=== PATIENT | female | born 1960 | race Caucasian/White ===

== ENCOUNTER 2019-08-21 14:54 | Emergency (ER) | payer MEDICARE, MEDICAID ==
[~2019-08-21] VITALS: Ht 162.6 cm; Wt 69.5 kg
[2019-08-21] MEDS ORDERED: ondansetron 4mg rapidly disintigrating tab PO ONE (15:15)
[2019-08-21] MEDS ORDERED: HYDROcodone/acetaminophen 10/325mg tab PO ONE ×2 (15:15→18:00)
[2019-08-21] MEDS ORDERED: ondansetron/PF 4mg/2ml inj IV ONE (15:55)
[2019-08-21] MEDS ORDERED: MIDAZolam 5mg/ml 2ml vial IV ONE (15:55)
[2019-08-21] MEDS ORDERED: etomidate 2mg/ml inj. IV ONE (15:55)
[2019-08-21] MEDS ORDERED: fentaNYL/PF 50MCG/1 ML 2ML syringe IV ONE (15:55)
[2019-08-21] MEDS ORDERED: fentaNYL/PF 50MCG/1 ML 2ML syringe IV PRN (16:50)
[2019-08-21] MEDS ORDERED: ondansetron/PF 4mg/2ml inj IV PRN (16:50)
[2019-08-21] MEDS ORDERED: ONDA4TAB6 PO (17:47)
[2019-08-21] MEDS ORDERED: HYDR-3965 PO (17:47)
[2019-08-21 18:51] VITALS: BP 144/74
== END 2019-08-21 18:45 | disposition home or self-care (01) ==
LOC: ER 14:55
DX: S43.315A Dislocation of left scapula, initial encounter (principal); R07.89 Other chest pain; R06.02 Shortness of breath; M25.512 Pain in left shoulder; R20.0 Anesthesia of skin; Z79.899 Other long term (current) drug therapy; W18.39XA Other fall on same level, initial encounter; Y93.89 Activity, other specified; Y92.89 Other specified places as the place of occurrence of the external cause; Y99.8 Other external cause status
CPT/HCPCS: 23650; 71101; 73020; 73030; 73080; 73110; 99285; J2250; J2405; J3010; 99152

== ENCOUNTER 2020-01-14 06:07 | Day surgery (SDC) | payer MEDICARE, OTHER ==
[2020-01-13 11:04] LABS: BASOPHILS % (AUTO) 0.7 % (0-1); EOSINOPHILS # (AUTO) 0.1 X10'3 (0-0.9); EOSINOPHILS % (AUTO) 2.3 % (0-6); LYMPHOCYTES # (AUTO) 1.2 X10'3 (1.1-4.8); MEAN CORPUSCULAR HEMOGLOBIN 31.1 PG (27.0-31.0); MEAN CORPUSCULAR HGB CONC 33.1 g/dL (33.0-36.5); MEAN PLATELET VOLUME 8.1 FL (7.4-10.4); MONOCYTES # (AUTO) 0.3 X10'3 (0-0.9); MONOCYTES % (AUTO) 8.3 % (2-12); NEUTROPHILS # (AUTO) 1.9 X10'3 (1.8-7.7); NEUTROPHILS % (AUTO) 53.7 % (42-75); PRE OP HEMATOCRIT 34.5 % (35.0-45.0); PRE OP HEMOGLOBIN 11.4 g/dL (12.0-16.0); PRE OP PLATELET COUNT 161 X10'3 (140-440); RED BLOOD COUNT 3.67 X10'6 (4.20-5.60); RED CELL DISTRIBUTION WIDTH 12.5 % (11.5-14.5)
[2020-01-13 11:19] LABS: ALBUMIN 3.8 G/DL (3.4-5.0); ALBUMIN/GLOBULIN RATIO 1.3 (1.1-1.5); ALKALINE PHOSPHATASE 71 IU/L (46-116); BLOOD UREA NITROGEN 20 MG/DL (7-18); CALCIUM 8.4 MG/DL (8.5-10.1); CHLORIDE 105 MMOL/L (99-107); CREATININE 0.77 MG/DL (0.40-0.90); PRE OP ALT 22 U/L (30-65); PRE OP ANION GAP 7 (8-16); PRE OP AST 17 U/L (10-37); PRE OP BILIRUB, TOTAL 0.5 MG/DL (0.0-1.0); PRE OP GLUCOSE 91 MG/DL (70-104); PRE OP POTASSIUM 3.9 MMOL/L (3.4-5.1); PRE OP SODIUM 140 MMOL/L (135-145); TOTAL CARBON DIOXIDE 27.7 MMOL/L (24-32); TOTAL PROTEIN 6.8 G/DL (6.4-8.2); eGFR 77 ML/MIN
[~2020-01-14] VITALS: Ht 162.6 cm; Wt 67.1 kg
[2020-01-14] VITALS (12 sets, daily range): BP systolic 120–134; BP diastolic 56–100
[~2020-01-14 06:07] MED LIST: ALBU8HFA INH; AMLO-383 PO; CITA40TA17 PO; ESTR1TAB28 PO; HYDR-3972 PO; KEN0.1O TOP; LIDO700A47 TOP; OMEP20TA5 PO; PENT100C9 PO; PUMP300C PO; ZOLP10TA PO; albuterol 2.5 MG/3 ML nebule NEB ONE; famotidine 20mg tablet PO ONE; ringers solution, lacted 1,000 ML IV SCH; scopolamine 1.5mg patch.TD72 TD ONE
[2020-01-14] MEDS ORDERED: BUPIVAcaine/PF 2.5 mg/ml (0.25%) 30ml vial ONE (06:34)
[2020-01-14] MEDS ORDERED: ceFAZolin 2gm in dextrose, iso 50 ML IV ONE (07:40)
[2020-01-14] MEDS ORDERED: ondansetron/PF 4mg/2ml inj ONE (08:10)
[2020-01-14] MEDS ORDERED: sevoflurane 250ml liquid IH ONE (08:10)
[2020-01-14] MEDS ORDERED: fentaNYL/PF 50MCG/1 ML 2ML syringe ONE (08:14)
[2020-01-14] MEDS ORDERED: MIDAZolam 5mg/5ml vial ONE (08:15)
[2020-01-14] MEDS ORDERED: propofol inj 20 ML IV ONE (08:35)
[2020-01-14] MEDS ORDERED: LIDOcaine 1%/PF 5ML 10 MG/ML VIAL ONE (08:35)
[2020-01-14] MEDS ORDERED: dexamethasone sod phosphate 4mg/ml inj. ONE (08:35)
[2020-01-14] MEDS ORDERED: ROPIVAcaine 0.5% (5mg/ml) 30ml vial ONE (08:35)
[2020-01-14] MEDS ORDERED: meperidine/PF 25mg/ml syringe IV PRN ×3 (09:20)
[2020-01-14] MEDS ORDERED: ondansetron/PF 4mg/2ml inj IV PRN (09:20)
[2020-01-14] MEDS ORDERED: ringers solution, lacted 1,000 ML IV SCH (09:20)
[2020-01-14] MEDS ORDERED: morphine 4 MG/ML inj SYRINge IV PRN (09:20)
[2020-01-14] MEDS ORDERED: morphine 2 MG/ML inj. syringe IV PRN (09:20)
[2020-01-14] MEDS ORDERED: ROPIVAcaine 0.2%/PF PUMP/bolus 550 ML INTERSCALE SCH (09:20)
[2020-01-14] MEDS ORDERED: proCHLORperazine 10 MG/2 ml inj IV PRN (09:20)
[2020-01-14] MEDS ORDERED: ROPIVAcaine 0.2% (10 MG/5 ML) BOLUS INJECTION INTERSCALE PRN (09:20)
--- NOTE | 2020-01-14 10:43 | NUR ---
Received from OR via [facility], accompanied by Anesthesiologist ROLAND and report given by Anesthesiologist. PT DROWSY, DENIES PAIN, LEFT SHOULDER W/MEDI-PORE TAPE COVERING INCISION CDI, LEFT ARM IN IMMOBILIZER, FINGERS PWD, DOMESTIC FREIGHT FORWARDER 1-2 SECONDS. Addendum: 01/14/20 at 1118 by Monse Ro RN Amended: Links added.
[2020-01-14] MEDS ORDERED: HYDROcodone/acetaminophen 10/325mg tab PO PRN (10:55)
--- NOTE | 2020-01-14 13:43 | NUR ---
D/C INSTRUCTIONS GIVEN AND GONE OVER W/PT WHO VERBALIZED UNDERSTANDING, PT UP AND ABLE TO AMBULATE SAFELY, PT D/CD TO HOME VIA W/C TO PRIVATE VEHICLE W/O INCIDENT. Addendum: 01/14/20 at 1455 by Monse Ro RN Amended: Links added.
== END 2020-01-14 13:43 | disposition home or self-care (01) ==
LOC: PAS 06:07
PROVIDERS: ATTEND Orthopaedic Surgery
DX: M75.122 Complete rotator cuff tear or rupture of left shoulder, not specified as traumatic (principal); M75.42 Impingement syndrome of left shoulder; M75.22 Bicipital tendinitis, left shoulder; G89.18 Other acute postprocedural pain; F32.9 Major depressive disorder, single episode, unspecified; D64.9 Anemia, unspecified; I10 Essential (primary) hypertension; Z98.890 Other specified postprocedural states; Z79.899 Other long term (current) drug therapy; Z98.84 Bariatric surgery status; Z72.89 Other problems related to lifestyle; Z90.49 Acquired absence of other specified parts of digestive tract; Z87.442 Personal history of urinary calculi
CPT/HCPCS: 29826; 29827; 29828; 36415; 64416; 76942; 80053; 82948; 85025; 93005; C1713; J1100; J2250; J2405; J2704; J2795; J3010; J3490; J7120; A4565; A4618; A6449; A7000

== ENCOUNTER 2020-02-05 12:58 | Emergency (ER) | payer MEDICARE, OTHER ==
[~2020-02-05] VITALS: Ht 162.6 cm; Wt 70.0 kg
[~2020-02-05 12:58] MED LIST changes: -albuterol 2.5 MG/3 ML nebule NEB ONE; -famotidine 20mg tablet PO ONE; -ringers solution, lacted 1,000 ML IV SCH; -scopolamine 1.5mg patch.TD72 TD ONE
[2020-02-05] MEDS ORDERED: ampicillin/sulbac 3gm/NS 100ml 100 ML IV ONE (15:32)
[2020-02-05 17:03] VITALS: BP 120/60
== END 2020-02-05 17:05 | disposition home or self-care (01) ==
LOC: ER 12:59
DX: K04.7 Periapical abscess without sinus (principal); K02.9 Dental caries, unspecified; F32.9 Major depressive disorder, single episode, unspecified; Z79.899 Other long term (current) drug therapy
CPT/HCPCS: 96365; 99284; J0295

== ENCOUNTER 2021-10-18 10:58 | Emergency (ER) | payer MEDICARE, MEDICAID ==
[~2021-10-18] VITALS: Ht 162.6 cm; Wt 68.2 kg
[~2021-10-18 10:58] MED LIST changes: +OMEP20TA43 PO; -OMEP20TA5 PO
[2021-10-18 12:09] VITALS: BP 157/52
[2021-10-18 12:29] LABS: UA COLLECTION TYPE CLN CATCH MIDSTREAM
[2021-10-18 12:30] LABS: CLARITY,URINE CLEAR (Clear); COLOR,URINE YELLOW (Yellow); GLUCOSE, URINE NEGATIVE (Neg); KETONES,URINE NEGATIVE (Neg); LEUKOCYTE ESTERASE ,URINE NEGATIVE (Neg); OCCULT BLOOD,URINE TRACE-INTACT (Neg); PROTEIN,URINE NEGATIVE (Neg); UROBILINOGEN,URINE 0.2 E.U/dL (0.2-1.0)
[2021-10-18 12:31] LABS: NITRITES, URINE NEGATIVE (Neg)
[2021-10-18 12:41] LABS: BACTERIA,URINE NONE SEEN /HPF (Neg); RBC,URINE NONE SEEN /HPF (0-2); SQUAMOUS EPITHELIAL CELL,UR FEW /LPF (FEW); WBC,URINE 0-4 /HPF (0-4)
[2021-10-18 12:46] LABS: EOSINOPHILS # (AUTO) 0.1 X10'3 (0-0.9); LYMPHOCYTES # (AUTO) 1.1 X10'3 (1.1-4.8); MEAN PLATELET VOLUME 8.3 FL (7.4-10.4); MONOCYTES # (AUTO) 0.3 X10'3 (0-0.9)
[2021-10-18 12:48] LABS: BASOPHILS % (AUTO) 1.1 % (0-1); EOSINOPHILS % (AUTO) 1.4 % (0-6); HEMATOCRIT 36.1 % (35.0-45.0); HEMOGLOBIN 12.1 g/dl (12.0-16.0); LYMPHOCYTES % (AUTO) 28.9 % (21-51); MEAN CORPUSCULAR HEMOGLOBIN 29.1 PG (27.0-31.0); MEAN CORPUSCULAR HGB CONC 33.4 g/dL (33.0-36.5); MEAN CORPUSCULAR VOLUME 86.9 FL (78-98); MONOCYTES % (AUTO) 7.8 % (2-12); NEUTROPHILS # (AUTO) 2.4 X10'3 (1.8-7.7); NEUTROPHILS % (AUTO) 60.8 % (42-75); PLATELET COUNT 192 X10'3 (140-440); RED BLOOD COUNT 4.16 X10'6 (4.20-5.60); RED CELL DISTRIBUTION WIDTH 13.6 % (11.5-14.5); WHITE BLOOD COUNT 3.9 X10'3 (4.5-11.0)
[2021-10-18 12:53] LABS: ALANINE AMINOTRANSFERASE 19 U/L (12-78); ALBUMIN 3.8 G/DL (3.4-5.0); ALBUMIN/GLOBULIN RATIO 1.1 (1.1-1.5); ALKALINE PHOSPHATASE 82 IU/L (46-116); ANION GAP 6 (8-16); ASPARTATE AMINO TRANSFERASE 19 U/L (10-37); BILIRUBIN,TOTAL 0.5 MG/DL (0.1-1.0); BLOOD UREA NITROGEN 14 MG/DL (7-18); BUN/CREATININE RATIO 20.3 (6.6-38.0); CALCIUM 8.6 MG/DL (8.5-10.1); CHLORIDE 108 MMOL/L (99-107); CREATININE 0.69 MG/DL (0.40-0.90); GLUCOSE 93 MG/DL (70-104); POTASSIUM 3.7 MMOL/L (3.5-5.1); SODIUM 141 MMOL/L (135-145); TOTAL PROTEIN 7.3 G/DL (6.4-8.2); eGFR 87 ML/MIN
== END 2021-10-18 15:06 | disposition home or self-care (01) ==
LOC: ER 10:58
DX: N39.0 Urinary tract infection, site not specified (principal); R35.0 Frequency of micturition; F32.A Depression, unspecified; Z87.440 Personal history of urinary (tract) infections; Z79.899 Other long term (current) drug therapy
CPT/HCPCS: 80053; 81001; 85025; 99283